=== PATIENT | male | born 1980 | race Caucasian/White ===

== ENCOUNTER 2017-12-03 08:14 | Emergency (ER) | payer SELFPAY ==
[~2017-12-03] VITALS: Ht 175.3 cm; Wt 91.0 kg
[2017-12-03] MEDS ORDERED: GUAI10SY2 GT (08:20)
[2017-12-03] MEDS ORDERED: ALBUTEROL (0.5%) 2.5MG/0.5ML NEB HHN ONE (11:30)
[2017-12-03] MEDS ORDERED: ACETAMINOPHEN 325MG TABLET PO ONE (12:00)
[2017-12-03 13:03] VITALS: BP 128/79
== END 2017-12-03 13:26 | disposition home or self-care (01) ==
LOC: ER 08:39
DX: J40 Bronchitis, not specified as acute or chronic (principal)
CPT/HCPCS: 71045; 87804; 94640; 99285; J7611

== ENCOUNTER 2023-04-28 16:24 | Emergency (ER) | payer MEDICAID ==
[~2023-04-28] VITALS: Ht 170.2 cm; Wt 82.0 kg
[~2023-04-28 16:24] MED LIST: GUAI10SY2 GT
[2023-04-28] MEDS ORDERED: SODIUM CHLORIDE 0.9% 1,000 ML IV ONE (17:45)
[2023-04-28] MEDS ORDERED: KETOROLAC 15MG/ML VIAL IV ONE (17:45)
[2023-04-28] MEDS ORDERED: DIPHENHYDRAMINE 50MG/ML VIAL IV ONE (17:45)
[2023-04-28] MEDS ORDERED: METOCLOPRAMIDE HCL 10MG/2ML VIAL IV ONE (17:45)
[2023-04-28 19:14] LABS: BASOPHILS % 0.2 % (0.0-2.0); EOSINOPHILS % 0.8 % (0.0-5.0); HEMATOCRIT. 43.7 % (42.0-52.0); HEMOGLOBIN. 14.4 g/dL (14.0-18.0); LYMPHOCYTES % 11.8 % (20.0-50.0); MEAN CORPUSCULAR HEMOGLOBIN 29.3 pg (28.0-32.0); MEAN CORPUSCULAR VOLUME 88.6 fL (80.0-94.0); MEAN PLATELET VOLUME 8.4 fl (7.4-10.4); MONOCYTES % 5.4 % (2.0-8.0); NEUTROPHILS % 81.8 % (40.0-76.0); PLATELET 209 x1000/uL (130-400); RED BLOOD CELL COUNT 4.93 mill/uL (4.7-6.1); RED CELL DISTRIBUTION WIDTH 14.6 % (11.6-14.6)
[2023-04-28 19:22] LABS: CHLORIDE 111 mEq/L (98-107)
[2023-04-28] MEDS ORDERED: ONDA4TAB50 MT (20:42)
[2023-04-28 21:07] VITALS: BP 110/72
== END 2023-04-28 21:09 | disposition home or self-care (01) ==
LOC: ER 16:24
DX: K52.9 Noninfective gastroenteritis and colitis, unspecified (principal)
CPT/HCPCS: 36415; 70450; 80053; 83690; 85025; 96361; 96374; 96375; 99285; J1200; J1885; J2765; J7030; Z7610